=== PATIENT | female | born 1960 | race Caucasian/White ===

== ENCOUNTER 2018-07-01 19:03 | Emergency (ER) | payer OTHER ==
[2018-07-01] MEDS ORDERED: HYDROmorphone 1 MG/ML Syringe IVPUSH ONE (20:02)
[2018-07-01] MEDS ORDERED: Ondansetron 4 MG/2 ML SDV IVPUSH ONE (20:02)
[2018-07-01] MEDS ORDERED: Sodium Chloride 0.9% 1,000 ML IV SCH (20:15)
[2018-07-01] MEDS: Sodium Chloride 0.9% 10 ML Syringe FLUSH PRN ×2 (20:26→20:34)
[2018-07-01] MEDS ORDERED: Sodium Chloride 0.9% 80 ML IV SCH (20:30)
[2018-07-01] MEDS ORDERED: Iopamidol 612 MG/ML 100 ML Bottle IV SCH (20:30)
--- NOTE | 2018-07-01 20:47 | EDM.PDOC ---
ED HPI GENERAL MEDICAL PROBLEM - General Chief Complaint: Abdominal Pain Stated Complaint: ABD PAIN Time Seen by Provider: 07/01/18 19:12 Source of Information: Reports: Patient History Limitations: Reports: No Limitations - History of Present Illness INITIAL COMMENTS - FREE TEXT/NARRATIVE: Abdominal pain: This is a 58 year old female present to ER with Mom. She reports has had abdominal pain since Sunday, getting worse. describes pain as burning and cramping. unable to touch her tummy due to pain. reports feeling worse than childbirth. unable to eat. last meal at 12 pm today, mac and cheese. has change in bowel movement. felt feverish, didn't take temp. positive nausea without vomiting no history of abdominal surgeries. reports healthy, no usually sick smokes 1/2 pack per day of cigerettes, had 2 today denies drugs or etoh. Onset: Gradual Onset Date: 06/28/18 Duration: Day(s):, Constant, Getting Worse Quality: Reports: Ache (cramping), Burning Severity: Severe (rates pain 10/10) Improves with: Reports: None Worsens with: Reports: None Associated Symptoms: Reports: Fever/Chills, Loss of Appetite, Malaise, Nausea/ Vomiting (without vomiting) lower abd Pain Score (Numeric/FACES): 8 - Related Data Allergies Allergy/AdvReac Type Severity Reaction Status Date / Time doxycycline Allergy Other Verified 07/01/18 19:44 Home Meds: Home Meds NK [No Known Home Meds] 07/01/18 [History] Past Medical History Gastrointestinal History: Reports: GERD, Hemorrhoids [employer]LYST History: Reports: Fibroids, Musculoskeletal History: Reports: Arthritis Social & Family History - Tobacco Use Smoking Status *Q: Current Every Day Smoker Years of Tobacco use: 42 Packs/Tins Daily: 0.5 - Caffeine Use Caffeine Use: Reports: Coffee - Alcohol Use Days Per Week of Alcohol Use: 3 Number of Drinks Per Day: 2 Total Drinks Per Week: 6 - Recreational Drug Use Recreational Drug Use: No ED ROS GENERAL - Review of Systems Review Of Systems: See Below Constitutional: Reports: Fever, Chills, Malaise, Decreased Appetite HEENT: Reports: No Symptoms Respiratory: Reports: No Symptoms Cardiovascular: Reports: No Symptoms Endocrine: Reports: No Symptoms GI/Abdominal: Reports: Abdominal Pain, Nausea : Reports: No Symptoms Musculoskeletal: Reports: No Symptoms Neurological: Reports: No Symptoms Psychiatric: Reports: No Symptoms Hematologic/Lymphatic: Reports: No Symptoms Immunologic: Reports: No Symptoms ED EXAM, GI/ABD - Physical Exam Exam: See Below Exam Limited By: No Limitations General Appearance: Alert, WD/WN, Moderate Distress, Thin Eyes: Bilateral: Normal Appearance Ears: Normal External Exam, Normal Canal, Hearing Grossly Normal, Normal TMs Nose: Normal Inspection, Normal Mucosa, No Blood Throat/Mouth: Normal Inspection, Normal Lips, Normal Teeth, Normal Gums, Normal Oropharynx, Normal Voice, No Airway Compromise Head: Atraumatic, Normocephalic Neck: Normal Inspection, Supple, Non-Tender, Full Range of Motion Respiratory/Chest: No Respiratory Distress, Lungs Clear, Normal Breath Sounds, No Accessory Muscle Use, Chest Non-Tender Cardiovascular: Normal Peripheral Pulses, Regular Rate, Rhythm, No Edema, No Gallop, No JVD, No Murmur, No Rub GI/Abdominal Exam: Normal Bowel Sounds, Soft, No Organomegaly, Pelvis Stable, Guarding (low abdomen), Rebound (lower abdomen) (Female) Exam: Deferred Rectal (Female) Exam: Deferred Back Exam: Normal Inspection, Full Range of Motion Extremities: Normal Inspection, Normal Range of Motion, Non-Tender, No Pedal Edema, Normal Capillary Refill Neurological: Alert, Oriented, CN II-XII Intact, Normal Cognition, Normal Gait, No Motor/Sensory Deficits Psychiatric: Normal Affect, Normal Mood Skin Exam: Warm, Dry, Intact, Normal Color, No Rash Lymphatic: No Adenopathy Course - Vital Signs Last Recorded V/S: Last Vital Signs Temp 37.3 C 07/01/18 19:37 Pulse 83 07/01/18 19:37 Resp 16 07/01/18 19:37 BP 153/91 H 07/01/18 19:37 Pulse Ox 97 07/01/18 19:37 - Orders/Labs/Meds Orders: Active Orders 24 hr Category Date Time Status Abdomen Pelvis w Cont [CT] Stat Exams 07/01/18 20:02 Taken UA W/MICROSCOPIC [URIN] Urgent Lab 07/01/18 19:35 Ordered Iopamidol [Isovue-300 (61%)] Med 07/01/18 20:30 Active 100 ml IV . DIRECTED Sodium Chloride 0.9% [Normal Saline] 1,000 ml Med 07/01/18 20:15 Active IV ASDIRECTED Sodium Chloride 0.9% [Normal Saline] 80 ml Med 07/01/18 20:30 Active IV ASDIRECTED Sodium Chloride 0.9% [Saline Flush] Med 07/01/18 20:22 Active 10 ml FLUSH ASDIRECTED PRN Medication Orders Sodium Chloride (Normal Saline) 1,000 mls @ 999 mls/hr IV ASDIRECTED NORIS Last Admin: 07/01/18 20:21 Dose: 999 mls/hr Sodium Chloride (Normal Saline) 80 mls @ 3 mls/sec IV ASDIRECTED NORIS Last Admin: 07/01/18 20:34 Dose: 3 mls/sec Iopamidol (Isovue-300 (61%)) 100 ml IV . DIRECTED NORIS Last Admin: 07/01/18 20:34 Dose: 100 ml Sodium Chloride (Saline Flush) 10 ml FLUSH ASDIRECTED PRN PRN Reason: Keep Vein Open Last Admin: 07/01/18 20:34 Dose: 10 ml Admin: 07/01/18 20:26 Dose: 10 ml Labs: Laboratory Tests 07/01/18 07/01/18 07/01/18 Range/Units 19:35 20:21 20:21 WBC 10.1 (4.5-11.0) K/uL RBC 3.80 (3.30-5.50) M/uL Hgb 12.3 (12.0-15.0) g/dL Hct 36.5 (36.0-48.0) % MCV 96 (80-98) fL MCH 32 H (27-31) pg MCHC 34 (32-36) % Plt Count 235 (150-400) K/uL Neut % (Auto) 67 H (36-66) % Lymph % (Auto) 22 L (24-44) % Stanton % (Auto) 8 H (2-6) % Eos % (Auto) 2 (2-4) % Baso % (Auto) 1 (0-1) % Sodium 138 L (140-148) mmol/L Potassium 3.7 (3.6-5.2) mmol/L Chloride 103 (100-108) mmol/L Carbon Dioxide 26 (21-32) mmol/L Anion Gap 12.7 (5.0-14.0) mmol/L BUN 14 (7-18) mg/dL Creatinine 0.7 (0.6-1.0) mg/dL Est Cr Clr Drug Dosing 71.58 mL/min Estimated GFR (MDRD) > 60 (>60) Glucose 106 (74-106) mg/dL Calcium 8.8 (8.5-10.1) mg/dL Total Bilirubin 0.9 (0.2-1.0) mg/dL AST 11 L (15-37) U/L ALT 18 (12-78) U/L Alkaline Phosphatase 72 (46-116) U/L Total Protein 7.0 (6.4-8.2) g/dL Albumin 3.5 (3.4-5.0) g/dL Globulin 3.5 (2.3-3.5) g/dL Albumin/Globulin Ratio 1.0 L (1.2-2.2) Amylase 28 (25-115) U/L Lipase (73-393) U/L Urine Color Yellow Urine Appearance Slightly cloudy Urine pH 5.0 (4.5-8.0) Ur Specific Roggen 1.015 (1.008-1.030) Urine Protein Negative (NEGATIVE) mg/dL Urine Glucose (UA) Normal (NEGATIVE) mg/dL Urine Ketones Negative (NEGATIVE) mg/dL Urine Occult Blood Large (NEGATIVE) Urine Nitrite Negative (NEGATIVE) Urine Bilirubin Negative (NEGATIVE) Urine Urobilinogen Normal (NORMAL) mg/dL Ur Leukocyte Esterase Negative (NEGATIVE) Urine RBC 5-10 H (0-5) Urine WBC 0-5 (0-5) Ur Epithelial Cells Few Amorphous Sediment Not seen Urine Bacteria Few Urine Mucus Not seen 07/01/18 Range/Units 20:21 WBC (4.5-11.0) K/uL RBC (3.30-5.50) M/uL Hgb (12.0-15.0) g/dL Hct (36.0-48.0) % MCV (80-98) fL MCH (27-31) pg MCHC (32-36) % Plt Count (150-400) K/uL Neut % (Auto) (36-66) % Lymph % (Auto) (24-44) % Stanton % (Auto) (2-6) % Eos % (Auto) (2-4) % Baso % (Auto) (0-1) % Sodium (140-148) mmol/L Potassium (3.6-5.2) mmol/L Chloride (100-108) mmol/L Carbon Dioxide (21-32) mmol/L Anion Gap (5.0-14.0) mmol/L BUN (7-18) mg/dL Creatinine (0.6-1.0) mg/dL Est Cr Clr Drug Dosing mL/min Estimated GFR (MDRD) (>60) Glucose (74-106) mg/dL Calcium (8.5-10.1) mg/dL Total Bilirubin (0.2-1.0) mg/dL AST (15-37) U/L ALT (12-78) U/L Alkaline Phosphatase (46-116) U/L Total Protein (6.4-8.2) g/dL Albumin (3.4-5.0) g/dL Globulin (2.3-3.5) g/dL Albumin/Globulin Ratio (1.2-2.2) Amylase (25-115) U/L Lipase 115 (73-393) U/L Urine Color Urine Appearance Urine pH (4.5-8.0) Ur Specific Roggen (1.008-1.030) Urine Protein (NEGATIVE) mg/dL Urine Glucose (UA) (NEGATIVE) mg/dL Urine Ketones (NEGATIVE) mg/dL Urine Occult Blood (NEGATIVE) Urine Nitrite (NEGATIVE) Urine Bilirubin (NEGATIVE) Urine Urobilinogen (NORMAL) mg/dL Ur Leukocyte Esterase (NEGATIVE) Urine RBC (0-5) Urine WBC (0-5) Ur Epithelial Cells Amorphous Sediment Urine Bacteria Urine Mucus Meds: Medications Generic Name Dose Route Start Last Admin Trade Name Dannieq PRN Reason Stop Dose Admin Sodium Chloride 1,000 mls @ 999 mls/hr 07/01/18 20:15 07/01/18 20:21 Normal Saline IV 999 mls/hr ASDIRECTED NORIS Administration Sodium Chloride 80 mls @ 3 mls/sec 07/01/18 20:30 07/01/18 20:34 Normal Saline IV 3 mls/sec ASDIRECTED NORIS Administration Iopamidol 100 ml 07/01/18 20:30 07/01/18 20:34 Isovue-300 (61%) IV 100 ml . DIRECTED NORIS Administration Sodium Chloride 10 ml 07/01/18 20:22 07/01/18 20:34 Saline Flush FLUSH 10 ml ASDIRECTED PRN Administration Keep Vein Open Discontinued Medications Generic Name Dose Route Start Last Admin Trade Name Jose PRN Reason Stop Dose Admin Hydromorphone HCl 1 mg 07/01/18 20:02 07/01/18 20:21 Dilaudid IVPUSH 07/01/18 20:03 0.5 mg ONETIME ONE Administration Ondansetron HCl 4 mg 07/01/18 20:02 07/01/18 20:19 Zofran IVPUSH 07/01/18 20:03 4 mg ONETIME ONE Administration - Re-Assessments/Exams Free Text/Narrative Re-Assessment/Exam: 07/01/18 20:51 -urine negative except for +occult blood -labs to rule out acute abdomen -imaging; CT abdomen pelvis with contrast pending -medication; IV Zofran 4mg, IV Dilaudid 1mg, IV fluids Normal Saline 999ml/hr. -advised to be NPO til all labs and imaging are done. Ms. Thompson and her Mom agree with plan of care. 07/01/18 21:31 -review CT abdomin-pelvis with Ms. Thompson and her Mom, given copy for home record -discussed labs -will discharge to home with medications, referral to [facility] and when to follow up Ms. Thompson and her Mom agree with plan of care. Departure - Departure Time of Disposition: 21:34 Disposition: Home, Self-Care 01 Clinical Impression: Cholelithiasis, Diverticulitis large intestine - Discharge Information *PRESCRIPTION DRUG MONITORING PROGRAM REVIEWED*: Not Applicable *COPY OF PRESCRIPTION DRUG MONITORING REPORT IN PATIENT CECI: Not Applicable Instructions: Laparoscopic Cholecystectomy, Cholelithiasis, [id number], Diverticulitis, [id number] Referrals: Geovanna Raymond, RN [Primary Care Provider] - Forms: ED Department Discharge Additional Instructions: Diverticulitis of large intestine -Metroniazole 500mg po three times x 10 days -Cipro 500mg po bid x 10 days -prednisone po daily for 5 days -discussed diet follow up in Primary Care for recheck within 10 days Cholelithiasis -Percocet one every 4 to 6 hours as needed for pain -low fat diet -referral to Surgery Clinic Return to ER for any fever,chills, uncontrolled pain, nausea, vomiting or any concerns. - Problem List & Annotations (1) Cholelithiasis SNOMED Code(s): 108936805 Code(s): K80.20 - CALCULUS OF GALLBLADDER W/O CHOLECYSTITIS W/O OBSTRUCTION Status: Acute Priority: High Current Visit: Yes (2) Diverticulitis large intestine SNOMED Code(s): 9127277 Code(s): K57.32 - DVTRCLI OF LG INT W/O PERFORATION OR ABSCESS W/O BLEEDING Status: Acute Current Visit: Yes Qualifiers: Diverticulitis complication: without perforation or abscess - Problem List Review Problem List Initiated/Reviewed/Updated: Yes - My Orders Last 24 Hours: My Active Orders 07/01/18 19:35 UA W/MICROSCOPIC [URIN] Urgent 07/01/18 20:02 Abdomen Pelvis w Cont [CT] Stat 07/01/18 20:15 Sodium Chloride 0.9% [Normal Saline] 1,000 ml IV ASDIRECTED 07/01/18 20:22 Sodium Chloride 0.9% [Saline Flush] 10 ml FLUSH ASDIRECTED PRN 07/01/18 20:30 Iopamidol [Isovue-300 (61%)] 100 ml IV . DIRECTED Sodium Chloride 0.9% [Normal Saline] 80 ml IV ASDIRECTED - Assessment/Plan Last 24 Hours: My Active Orders 07/01/18 19:35 UA W/MICROSCOPIC [URIN] Urgent 07/01/18 20:02 Abdomen Pelvis w Cont [CT] Stat 07/01/18 20:15 Sodium Chloride 0.9% [Normal Saline] 1,000 ml IV ASDIRECTED 07/01/18 20:22 Sodium Chloride 0.9% [Saline Flush] 10 ml FLUSH ASDIRECTED PRN 07/01/18 20:30 Iopamidol [Isovue-300 (61%)] 100 ml IV . DIRECTED Sodium Chloride 0.9% [Normal Saline] 80 ml IV ASDIRECTED Plan: Diverticulitis of large intestine -Metroniazole 500mg po three times x 10 days -Cipro 500mg po bid x 10 days -prednisone po daily x 5 days -discussed diet follow up in Primary Care for recheck within 10 days Cholelithiasis -Percocet one every 4 to 6 hours as needed for pain -low fat diet -referral to Surgery Clinic Return to ER for any fever,chills, uncontrolled pain, nausea, vomiting or any concerns.
== END 2018-07-01 21:51 | disposition home or self-care (01) ==
LOC: JP.ED 19:03
DX: K80.20 Calculus of gallbladder without cholecystitis without obstruction (principal); K57.32 Diverticulitis of large intestine without perforation or abscess without bleeding; F17.210 Nicotine dependence, cigarettes, uncomplicated
CPT/HCPCS: 36415; 74177; 80053; 81001; 82150; 83690; 85025; 96361; 96374; 96375; 99284; J1170; J2405; J7030; J7050; Q9967

== ENCOUNTER 2025-08-05 08:34 | Day surgery (SDC) | payer MEDICARE, OTHER ==
[~2025-08-05 08:34] MED LIST: Midazolam 1 MG/ML 2 ML SDV ONE; Propofol 200 MG/20 ML SDV ONE; fentaNYL 50 MCG/ML SDV ONE
[2025-08-05] MEDS: Lactated Ringers 1,000 ML IV SCH (09:34)
== END 2025-08-05 12:39 | disposition home or self-care (01) ==
LOC: JP.SDS 08:34
PROVIDERS: ATTEND Surgery
DX: Z12.11 Encounter for screening for malignant neoplasm of colon (principal); D12.0 Benign neoplasm of cecum; D12.4 Benign neoplasm of descending colon; K63.5 Polyp of colon; K57.30 Diverticulosis of large intestine without perforation or abscess without bleeding; R19.5 Other fecal abnormalities; K21.9 Gastro-esophageal reflux disease without esophagitis; Z88.5 Allergy status to narcotic agent; Z79.899 Other long term (current) drug therapy
CPT/HCPCS: 00811; 45380; 45385; A9270; J2250; J2704; J3010; J7120; 88305